=== PATIENT | male | born 1975 | race Caucasian/White ===

== ENCOUNTER 2016-09-13 13:35 | Emergency (ER) | payer OTHER ==
[~2016-09-13] VITALS: Ht 172.7 cm; Wt 162.7 kg
[~2016-09-13 13:35] MED LIST: COLC1TAB25 PO; ERGO1CAP41 PO; GABA-113 PO; LISI-725 PO; PANT40TA PO
[2016-09-13 13:40] VITALS: BP 163/74; PULSE 61; TEMP 36.5; O2SAT 95; Ht 172.7 cm; Wt 162.7 kg
--- NOTE | 2016-09-13 16:43 | EMERGENCY ROOM VISIT NOTE ---
ED Visit Note First contact with patient: 13:56 Chief complaint: Retained sutures left long finger. HPI: This 41-year-old white male presents to the ER for removal of retained sutures in the left long finger. The patient denies any fevers, chills, sweats, nausea, redness, streaking, purulent drainage, pain with palpation, or other signs of infection. They have been keeping the wound clean and protected as directed. Pain is rated as 0/10. Sutures have been in place for 10 days. No other complaints. Medical history, past surgical history, family history, social history, current medications, allergies, and tetanus status: All are unchanged from previous exam. Please see the chart from the initial wound repair visit. Physical exam Vitals: Afebrile General: Well-developed, well-nourished, middle-aged white male, in no acute distress. He looks his stated age. Sitting on the bed, alert and oriented. No visible discomfort. Skin: Warm and dry with good turgor. No rashes or lesions. Sutures are in place. Wound edges are well approximated. No erythema, edema, ecchymosis, purulent drainage, or warmth. No significant discomfort with palpation. Area is nonfluctuant. Musculoskeletal: Patient has intact motor function to the MCP , PIP, and DIP joints. Neurologic: Gross sensation is intact around the wound via soft touch. Capillary refill is intact and is equal to the surrounding tissue. Impression: Healing laceration left long finger Plan: Wound was cleansed with peroxide. Sutures were removed without event. Wound remained closed. No Steri-Strips were needed. Wound care precautions were reviewed. Watch for any signs of infection, or dehiscense. Return to the ER as needed. Tylenol as needed for any discomfort. Current/Historical Medications Scheduled Colchicine (Colchicine), 0.6 MG PO DAILY Ergocalciferol (Vitamin D 48954 Unit), 1 TAB PO MONTHLY Gabapentin (Neurontin), Unknown Dose PO DAILY Lisinopril (Zestril), 20 MG PO DAILY Pantoprazole (Protonix), 40 MG PO DAILY Allergies Coded Allergies: No Known Allergies (Unverified , 09/13/16) Vital Signs Date Time Temp Pulse Resp B/P Pulse Ox O2 Delivery O2 Flow Rate FiO2 09/13/16 13:40 36.5 61 18 163/74 95 Room Air Departure Information Dispostion Home / Self-Care Condition GOOD Referrals Karlee Tan, C.R.N.P. (PCP) Forms HOME CARE DOCUMENTATION FORM, IMPORTANT VISIT INFORMATION Patient Instructions A Signature Page, [facility]
[2017-02-11] MEDS ORDERED: LSN5 PO (16:55)
[2017-02-11] MEDS ORDERED: CMD5 PO (16:55)
[2017-02-11] MEDS ORDERED: LVNIS60 SQ (16:55)
[2017-02-11] MEDS ORDERED: LVNIS120 SQ (16:55)
[2017-02-11] MEDS ORDERED: CRG3125 PO (16:55)
[2017-02-22] MEDS ORDERED: CMD5 PO ×2 (10:29)
[2017-02-22] MEDS ORDERED: BUPRTAB51 PO (10:29)
[2017-03-08] MEDS ORDERED: ESCI1TAB6 PO (07:43)
== END 2016-09-13 14:00 | disposition home or self-care (01) ==
LOC: C.EDB 13:36 → C.EDD 14:00
DX: Z48.02 Encounter for removal of sutures (principal); S61.213D Laceration without foreign body of left middle finger without damage to nail, subsequent encounter; X58.XXXD Exposure to other specified factors, subsequent encounter

== ENCOUNTER → 2016-09-22 | Outpatient (CLI) | payer OTHER ==
[~2016-09-22] MED LIST changes: +BUPRTAB51 PO; +CMD5 PO; +CRG3125 PO; +ESCI1TAB6 PO; +LSN5 PO; +LVNIS120 SQ; +LVNIS60 SQ; +OPTIRAY 320 IV PRN
--- NOTE | 2016-09-22 18:22 | DIAGNOSTIC IMAGING REPORT ---
CT SCAN OF THE ABDOMEN AND PELVIS WITH IV CONTRAST CLINICAL HISTORY: Left lower quadrant abdominal pain. COMPARISON STUDY: No priors. TECHNIQUE: Following the IV administration of 116 cc of Optiray 320, CT scan of the abdomen and pelvis is performed from the lung bases to the proximal femora. Images are reviewed in the axial, sagittal, and coronal planes. IV contrast was administered without complication. Automated dose control exposure was utilized. The Examination is significantly degraded by large body habitus, and by streak artifact from the body wall abutting the CT gantry. CT DOSE: 2497.16 mGy.cm FINDINGS: Lung bases: The heart is mildly enlarged and without pericardial effusion. The lung bases are clear. Liver: The contrast-enhanced liver is enlarged, measuring 23.5 cm in length. The liver demonstrates diffusely diminished attenuation consistent with severe hepatic steatosis. There is no intrahepatic biliary ductal dilatation. The hepatic veins and portal veins are patent. Gallbladder: Unremarkable. Spleen: The spleen is mildly enlarged measuring 13.5 cm in length. Pancreas: Unremarkable. Adrenal glands: Unremarkable. Kidneys: The contrast enhanced kidneys are normal in size and without hydronephrosis. The kidneys enhance symmetrically. A subcentimeter cortical hypodensity in the lower pole of the left kidney likely represents a cyst but is too small for definitive characterization. Abdominal vasculature: The abdominal aorta is normal in course and caliber. Bowel: The small bowel and colon are normal in course and caliber. The appendix is well-visualized and normal. Peritoneum: There is no intraperitoneal free air or abdominal ascites. There is a moderate fat-containing umbilical hernia. Lymphadenopathy: None. Pelvic viscera: The bladder, prostate, and seminal vesicles are normal as visualized. There are small bilateral fat-containing inguinal hernias. Skeletal structures: No lytic or blastic lesions are seen. IMPRESSION: 1. There are no acute infectious or inflammatory findings in the abdomen or pelvis. 2. Hepatomegaly and hepatic steatosis. 3. Mild splenomegaly. 4. Additional findings as above. Electronically signed by: Pasquale Estevez M.D. 09/22/2016 6:20 PM Dictated Date/Time: 09/22/2016 6:15 PM
== END | disposition home or self-care (01) ==
LOC: C.CTS 15:16
PROVIDERS: ATTEND Nurse Practitioner
DX: R10.32 Left lower quadrant pain (principal); R19.8 Other specified symptoms and signs involving the digestive system and abdomen; K76.0 Fatty (change of) liver, not elsewhere classified

== ENCOUNTER → 2016-09-22 | Outpatient (CLI) | payer OTHER ==
[~2016-09-22] MED LIST changes: -OPTIRAY 320 IV PRN
[2016-09-22 17:53] LABS: BASO % 0.5 %; BASO ABS # 0.06 K/uL (0-0.2); COMPLETE YES; EOS % 2.2 %; HEMATOCRIT 42.5 % (42-52); IG% 0.3 %; LYMPH % 26.6 %; LYMPH ABS # 3.08 K/uL (1.2-3.4); MEAN CELL VOLUME 89.5 fL (80-100); MEAN CORPUSCULAR HEMOGLOBIN 30.5 pg (25-34); MEAN CORPUSCULAR HGB CONC 34.1 g/dl (32-36); MONO % 5.9 %; NEUT % 64.5 %; PLATELET COUNT 301 K/uL (130-400); RED BLOOD COUNT 4.75 M/uL (4.7-6.1); WHITE BLOOD COUNT 11.57 K/uL (4.8-10.8)
[2016-09-22 18:15] LABS: ALT/SGPT 24 U/L (12-78); AST/SGOT 11 U/L (15-37); BLOOD UREA NITROGEN 12 mg/dl (7-18); BUN/CREATININE RATIO 13.7 (10-20); CALCIUM 9.3 mg/dl (8.5-10.1); CARBON DIOXIDE 30 mmol/L (21-32); CHLORIDE 104 mmol/L (98-107); CREATININE 0.86 mg/dl (0.60-1.40); GLUCOSE 85 mg/dl (70-99); POTASSIUM 4.4 mmol/L (3.5-5.1); SODIUM 140 mmol/L (136-145)
[2016-09-22 18:18] LABS: ALB/GLOB RATIO 0.8 (0.9-2); ALKALINE PHOSPHATASE 76 U/L (45-117)
== END | disposition home or self-care (01) ==
LOC: C.LABBFT 16:37
PROVIDERS: ATTEND Nurse Practitioner
DX: R10.32 Left lower quadrant pain (principal)

== ENCOUNTER 2017-02-22 18:34 | Emergency (ER) | payer OTHER ==
[~2017-02-22] VITALS: Ht 172.7 cm; Wt 177.2 kg
[~2017-02-22 18:34] MED LIST changes: -ERGO1CAP41 PO; +ERGO500011 PO; -ESCI1TAB6 PO; -GABA-113 PO; -LISI-725 PO
[2017-02-22 18:37] VITALS: TEMP 36.9; Ht 172.7 cm; Wt 177.2 kg
[2017-02-22] MEDS ORDERED: SODIUM CHLORIDE 0.9% 1000ML 1,000 ML IV STA (19:12)
[2017-02-22] MEDS ORDERED: SODIUM CHLORIDE 0.9% 1000ML 1,000 ML IV ONE (19:12)
--- NOTE | 2017-02-22 19:36 | EMERGENCY ROOM VISIT NOTE ---
History Report prepared by Aniket: John Gonzalez Under the Supervision of: Dr. Rex Abad M.D. First contact with patient: 19:01 Chief Complaint: MENTAL HEALTH EVALUATION Stated Complaint: FEELING DIZZY History of Present Illness The patient is a 42 year old male who presents to the Emergency Room with complaints of constant dizziness beginning this morning. The patient states that he has been lightheaded, having vertigo, and a headache. He reports that rest helps his symptoms, but movement worsens it. The patient denies trauma, falling, nausea, vomiting, melena, blood in stool, suicidal ideations, and homicidal ideations. He notes that he though of hurting himself before, but not today. The patient reports that he started Wellbutrin three days ago, and believes that this is the cause. He states that he is also taking Coumadin, and he had low blood pressure this morning at the INR clinic. The patient states that he does not think he needs mental health evaluation today, and his fiance agrees. He notes that he was here two weeks ago for blood clots in his lungs. Source of History: patient, spouse/significant other Onset: this morning Position: head Quality: other (dizziness) Timing: constant Associated Symptoms: + headache, No nausea, No vomiting, No melena, No hematochezia Note: Associated symptoms: vertigo and lightheadedness Denies trauma, falling, suicidal ideations, and homicidal ideations. Review of Systems See HPI for pertinent positives & negatives. A total of 10 systems reviewed and were otherwise negative. Past Medical & Surgical Medical Problems: (1) Pulmonary emboli Old medical records were reviewed. Nurse's notes were reviewed and I agree with. Family History Patient reports no known family medical history. Social History Smoking Status: Never Smoker Drug Use: none Marital Status: Housing Status: lives with family Occupation Status: employed Current/Historical Medications Scheduled Bupropion (Wellbutrin-Xl), 150 MG PO DAILY Carvedilol (Carvedilol), 3.125 MG PO BID Colchicine (Colchicine), 0.6 MG PO DAILY Ergocalciferol (Vitamin D 71775 Unit), 1 TAB PO MONTHLY Lisinopril (Lisinopril), 5 MG PO QAM Pantoprazole (Protonix), 40 MG PO DAILY Warfarin Sod (Coumadin), 15 MG PO WK Warfarin Sod (Coumadin), 12.5 MG PO 6XWK Allergies Coded Allergies: No Known Allergies (Unverified , 02/22/17) Physical Exam Vital Signs Date Time Temp Pulse Resp B/P (MAP) Pulse Ox O2 Delivery O2 Flow Rate FiO2 02/22/17 23:58 50 18 119/52 96 02/22/17 23:00 50 18 96 Room Air 02/22/17 21:22 53 18 109/51 95 Room Air 02/22/17 20:05 50 16 119/55 95 Room Air 02/22/17 18:37 36.9 50 20 125/72 96 Room Air Physical Exam General: Obese, middle-aged male, non-ill appearing, no acute distress, breathing comfortably on room air. Normal speech HEENT: Normal cephalic atraumatic. Pupils are equal round and reactive to light. Sclerae are anicteric. Extraocular movements are intact. Oropharynx is pink with moist mucous membranes. No swelling of the mouth lips or tongue. No eye stag. Neck: Supple with a midline trachea. No meningeal signs or stiffness, no JVD or bruits. No Stridor. Chest: Clear to auscultation bilaterally. No wheezes or rhonchi. No increased work of breathing. Heart: regular rate and rhythm. Abdomen: Soft nontender, nondistended without rebound guarding or rigidity. Extremities: No cyanosis clubbing or edema. No calf tenderness or assymetry Spine/Back. Non tender to palpation. No CVA tenderness Skin: Good turgor without rashes. Neurologic exam: Cranial nerves two through 12 are intact. Motor and sensation are intact and symmetrical throughout. GCS of 15. No tremor. Finger to nose intact. Psychological: Normal affect, denies suicidal and homicidal ideations. Medical Decision & Procedures ER Provider Diagnostic Interpretation: Radiology results as stated below per my review and radiologist interpretation: CHEST ONE VIEW PORTABLE CLINICAL HISTORY: Atypical chest pain. Dizziness. COMPARISON STUDY: 02/09/2017 FINDINGS: The cardiac and mediastinal contours are normal. There is no evidence of focal pulmonary consolidation. There is no evidence of failure. No pleural effusions are visualized.[ The examination is slightly limited due to the patient's large body habitus. IMPRESSION: No active disease in the chest. Electronically signed by: Paul Hall M.D. 02/22/2017 7:59 PM Dictated Date/Time: 02/22/2017 7:[address] HEAD WITHOUT CONTRAST (CT) CLINICAL HISTORY: Dizziness. Patient on Coumadin. COMPARISON STUDY: No previous studies for comparison. TECHNIQUE: Axial CT of the brain is performed from the vertex to the skull base. IV contrast was not administered for this examination. CT DOSE: 795.67 mGy.cm FINDINGS: No intra or extra-axial mass lesions are visualized. There is no CT evidence of acute cortical infarction. There is no evidence of midline shift. There is no acute hemorrhage. No calvarial fractures are visualized. There is no evidence of pathologic ventricular dilatation. There is polypoid right maxillary sinus mucosal thickening. IMPRESSION: No acute intracranial findings Electronically signed by: Paul Hall M.D. 02/22/2017 8:53 PM Dictated Date/Time: 02/22/2017 8:52 PM Laboratory Results 02/22/17 19:53 Red Blood Count 4.89, Mean Corpuscular Volume 87.1, Mean Corpuscular Hemoglobin 28.8, Mean Corpuscular Hemoglobin Concent 33.1, Mean Platelet Volume 9.9, Neutrophils (%) (Auto) 59.2, Lymphocytes (%) (Auto) 31.5, Monocytes (%) (Auto) 5.8, Eosinophils (%) (Auto) 2.7, Basophils (%) (Auto) 0.4, Neutrophils # (Auto) 6.40, Lymphocytes # (Auto) 3.41, Monocytes # (Auto) 0.63, Eosinophils # (Auto) 0.29, Basophils # (Auto) 0.04 02/22/17 19:53 Test 02/22/17 19:25 02/22/17 19:53 02/22/17 20:03 Urine Opiates Screen NEG (NEG) Urine Methadone, Qualitative NEG (NEG) Urine Barbiturates NEG (NEG) Urine Phencyclidine (PCP) Level NEG (NEG) Ur Amphetamine/Methamphetamine NEG (NEG) MDMA (Ecstasy) Screen POS (NEG) Urine Benzodiazepines Screen NEG (NEG) Urine Cocaine Metabolite NEG (NEG) Urine Marijuana (THC) NEG (NEG) White Blood Count 10.81 K/uL (4.8-10.8) Red Blood Count 4.89 M/uL (4.7-6.1) Hemoglobin 14.1 g/dL (14.0-18.0) Hematocrit 42.6 % (42-52) Mean Corpuscular Volume 87.1 fL (80-100) Mean Corpuscular Hemoglobin 28.8 pg (25-34) Mean Corpuscular Hemoglobin Concent 33.1 g/dl (32-36) Platelet Count 299 K/uL (130-400) Mean Platelet Volume 9.9 fL (7.4-10.4) Neutrophils (%) (Auto) 59.2 % Lymphocytes (%) (Auto) 31.5 % Monocytes (%) (Auto) 5.8 % Eosinophils (%) (Auto) 2.7 % Basophils (%) (Auto) 0.4 % Neutrophils # (Auto) 6.40 K/uL (1.4-6.5) Lymphocytes # (Auto) 3.41 K/uL (1.2-3.4) Monocytes # (Auto) 0.63 K/uL (0.11-0.59) Eosinophils # (Auto) 0.29 K/uL (0-0.5) Basophils # (Auto) 0.04 K/uL (0-0.2) RDW Standard Deviation 45.4 fL (36.4-46.3) RDW Coefficient of Variation 14.3 % (11.5-14.5) Immature Granulocyte % (Auto) 0.4 % Immature Granulocyte # (Auto) 0.04 K/uL (0.00-0.02) Prothrombin Time 22.3 SECONDS (9.0-12.0) Prothromb Time International Ratio 2.0 (0.9-1.1) Activated Partial Thromboplast Time 39.7 SECONDS (21.0-31.0) Partial Thromboplastin Ratio 1.5 Anion Gap 7.0 mmol/L (3-11) Est Creatinine Clear Calc Drug Dose 188.1 ml/min Estimated GFR () 127.1 Estimated GFR (Non- 109.6 BUN/Creatinine Ratio 14.5 (10-20) Calcium Level 8.7 mg/dl (8.5-10.1) Total Bilirubin 0.3 mg/dl (0.2-1) Direct Bilirubin < 0.1 mg/dl (0-0.2) Aspartate Amino Transf (AST/SGOT) 10 U/L (15-37) Alanine Aminotransferase (ALT/SGPT) 38 U/L (12-78) Alkaline Phosphatase 66 U/L (45-117) Troponin I < 0.015 ng/ml (0-0.045) Total Protein 7.8 gm/dl (6.4-8.2) Albumin 3.5 gm/dl (3.4-5.0) Lipase 113 U/L (73-393) Ethyl Alcohol mg/dL < 3.0 mg/dl (0-3) Laboratory studies as stated above per my review. Medications Administered Medications (Trade) Dose Ordered Sig/Julia Route Start Time Stop Time Status Last Admin Dose Admin Sodium Chloride 1,000 ml @ 999 mls/hr Q1H1M STAT IV 02/22/17 19:12 02/22/17 20:12 DC 02/22/17 20:05 999 MLS/HR Sodium Chloride 1,000 ml @ 150 mls/hr Q6H40M ONCE IV 02/22/17 19:12 02/23/17 01:19 DC 02/22/17 19:12 150 MLS/HR ECG Indication: other (dizziness) Rate (beats per minute): 54 Rhythm: sinus bradycardia Findings: no acute ischemic change, other (premature supraventricular complex) Comparison ECG Date: 02/10/17 Change: no significant change ED Course 1908: Past medical records reviewed. The patient was evaluated in room A05, and a complete history and physical examination were performed. 1911: Ordered Sodium Chloride 1000 ml @ 150 mls/hr IV, Sodium Chloride 1000 ml @ 999 mls/hr IV 2048: I reevaluated the patient, and he is on his way back from [place]. 2231: I reevaluated the patient, and he is resting comfortably. 2325: Upon reevaluation, the patient is resting comfortably. I discussed the results and treatment plan with him. He verbalized agreement of the treatment plan. The patient was discharged home. Medical Decision Differential diagnosis includes: vertigo, medication side effect, anemia, intracranial injury, infection, electrolyte metabolic abnormality. Medication Reconciliation: I attest that I have personally reviewed the patient' s current medication list. Blood pressure Screening: Patient was found to have normal blood pressure on screening and does not require follow-up. This patient comes in as described above. He was placed in room A5. He is feeling dizzy today. He was on Wellbutrin on Wednesday concerning the be related to that. He has a normal neurologic exam. He is started on Coumadin and recently was found to be therapeutic on his INR he has not fallen. He has a normal neurologic exam and has no ataxia or any cerebellar signs. He is not anemic. EKG does not suggest acute coronary syndrome or significant arrhythmia. He has no acute electrolyte or metabolic abnormalities. CAT scan of his head is unremarkable . chest x-ray is unremarkable. His troponin is not elevated. He is feeling good and would like to go home. He does not feel that he needs an acute psychiatric consult and feels that he can go home. The agrees. He will be discharged home. I told him hold Wellbutrin for now and follow-up with his doctor tomorrow for further instructions. There were happy with the plan he was discharged to home. Impression Primary Impression: Dizziness Additional Impression: Medication side effect Scribe Attestation The scribe's documentation has been prepared under my direction and personally reviewed by me in its entirety. I confirm that the note above accurately reflects all work, treatment, procedures, and medical decision making performed by me. Departure Information Dispostion Home / Self-Care Referrals Karlee Tan, C.R.N.P. (PCP) Forms HOME CARE DOCUMENTATION FORM, IMPORTANT VISIT INFORMATION Patient Instructions My [facility] Additional Instructions Rest. Be very careful getting up and down. Drink plenty of fluids. Return if: Worsening of symptoms, chest pain, shortness of breath, fever or chills, any new problems or concerns. Hold the Wellbutrin for now and discuss this with your doctor tomorrow. The dizziness is likely from the Wellbutrin. Problem Qualifiers
--- NOTE | 2017-02-22 20:00 | DIAGNOSTIC IMAGING REPORT ---
CHEST ONE VIEW PORTABLE CLINICAL HISTORY: Atypical chest pain. Dizziness. COMPARISON STUDY: 02/09/2017 FINDINGS: The cardiac and mediastinal contours are normal. There is no evidence of focal pulmonary consolidation. There is no evidence of failure. No pleural effusions are visualized.[ The examination is slightly limited due to the patient's large body habitus. IMPRESSION: No active disease in the chest. Electronically signed by: Palu Hall M.D. 02/22/2017 7:59 PM Dictated Date/Time: 02/22/2017 7:58 PM
[2017-02-22 20:10] LABS: BENZODIAZEPINE, URINE NEG (NEG); COCAINE,URINE NEG (NEG); PHENCYCLIDINE, URINE NEG (NEG)
[2017-02-22 20:11] LABS: BASO % 0.4 %; BASO ABS # 0.04 K/uL (0-0.2); COMPLETE YES; EOS % 2.7 %; HEMATOCRIT 42.6 % (42-52); IG% 0.4 %; LYMPH % 31.5 %; LYMPH ABS # 3.41 K/uL (1.2-3.4); MEAN CELL VOLUME 87.1 fL (80-100); MEAN CORPUSCULAR HEMOGLOBIN 28.8 pg (25-34); MEAN CORPUSCULAR HGB CONC 33.1 g/dl (32-36); MEAN PLATELET VOLUME 9.9 fL (7.4-10.4); MONO % 5.8 %; NEUT % 59.2 %; PLATELET COUNT 299 K/uL (130-400); RED BLOOD COUNT 4.89 M/uL (4.7-6.1); WHITE BLOOD COUNT 10.81 K/uL (4.8-10.8)
[2017-02-22 20:21] LABS: PARTIAL THROMBOPLASTIN RATIO 1.5; PROTHROMBIN TIME (PATIENT) 22.3 SECONDS (9.0-12.0)
[2017-02-22 20:31] LABS: ALT/SGPT 38 U/L (12-78); AST/SGOT 10 U/L (15-37); BLOOD UREA NITROGEN 12 mg/dl (7-18); BUN/CREATININE RATIO 14.5 (10-20); CALCIUM 8.7 mg/dl (8.5-10.1); CARBON DIOXIDE 27 mmol/L (21-32); CHLORIDE 106 mmol/L (98-107); CREATININE 0.81 mg/dl (0.60-1.40); GLUCOSE 90 mg/dl (70-99); POTASSIUM 4.1 mmol/L (3.5-5.1); SODIUM 140 mmol/L (136-145)
[2017-02-22 20:34] LABS: ALKALINE PHOSPHATASE 66 U/L (45-117)
--- NOTE | 2017-02-22 20:55 | DIAGNOSTIC IMAGING REPORT ---
CT HEAD WITHOUT CONTRAST (CT) CLINICAL HISTORY: Dizziness. Patient on Coumadin. COMPARISON STUDY: No previous studies for comparison. TECHNIQUE: Axial CT of the brain is performed from the vertex to the skull base. IV contrast was not administered for this examination. CT DOSE: 795.67 mGy.cm FINDINGS: No intra or extra-axial mass lesions are visualized. There is no CT evidence of acute cortical infarction. There is no evidence of midline shift. There is no acute hemorrhage. No calvarial fractures are visualized. There is no evidence of pathologic ventricular dilatation. There is polypoid right maxillary sinus mucosal thickening. IMPRESSION: No acute intracranial findings Electronically signed by: Paul Hall M.D. 02/22/2017 8:53 PM Dictated Date/Time: 02/22/2017 8:52 PM
[2017-02-22 23:58] VITALS: BP 119/52; PULSE 50; O2SAT 96
[2017-03-08] MEDS ORDERED: ESCI1TAB6 PO (07:43)
== END 2017-02-22 23:58 | disposition home or self-care (01) ==
LOC: C.EDB 18:35 → C.EDA 23:58
DX: R42 Dizziness and giddiness (principal); T43.295A Adverse effect of other antidepressants, initial encounter; Z79.01 Long term (current) use of anticoagulants; Z86.711 Personal history of pulmonary embolism; Z79.899 Other long term (current) drug therapy

== ENCOUNTER → 2017-07-17 | Outpatient (CLI) | payer BC ==
[~2017-07-17] MED LIST changes: -BUPRTAB51 PO; +ESCI1TAB6 PO; -LVNIS120 SQ; -LVNIS60 SQ; -PANT40TA PO
[2017-07-17 14:31] LABS: BASO % 0.5 %; BASO ABS # 0.05 K/uL (0-0.2); COMPLETE YES; EOS % 2.4 %; HEMATOCRIT 43.3 % (42-52); IG% 0.4 %; LYMPH % 30.2 %; LYMPH ABS # 2.93 K/uL (1.2-3.4); MEAN CELL VOLUME 89.6 fL (80-100); MEAN CORPUSCULAR HEMOGLOBIN 29.6 pg (25-34); MEAN PLATELET VOLUME 10.4 fL (7.4-10.4); NEUT % 60.5 %; PLATELET COUNT 263 K/uL (130-400); RED BLOOD COUNT 4.83 M/uL (4.7-6.1)
== END | disposition home or self-care (01) ==
LOC: C.LAB 13:45
PROVIDERS: ATTEND Nurse Practitioner
DX: I10 Essential (primary) hypertension (principal)

== ENCOUNTER → 2017-09-09 | Outpatient (CLI) | payer BC ==
[~2017-09-09] VITALS: Ht 172.7 cm; Wt 181.4 kg
[~2017-09-09] MED LIST changes: +ASPI81TA28 PO; +CARV3.122 PO; +CEPH500C PO; +ERGO500037 PO; +ESCI10TA17 PO; +HYDR-5688 PO; +KETO10TA PO; +LEVO50TA6 PO; +LISI-729 PO; +LISI-730 PO; -LSN5 PO; +ONDA4TAB46 PO; +OXYC-57 PO; +PRAM0.259 PO; +RANI150T85 PO; +SULF800T23 PO; +TOPI25CA2 PO; +VALA1TAB31 PO
[2017-09-09 15:31] VITALS: BP 132/65; PULSE 56; Ht 172.7 cm; Wt 181.4 kg
== END | disposition home or self-care (01) ==
LOC: C.NEUR 14:39
PROVIDERS: ATTEND Internal Medicine Pulmonary Disease
DX: G47.33 Obstructive sleep apnea (adult) (pediatric) (principal); E66.01 Morbid (severe) obesity due to excess calories

== ENCOUNTER → 2017-10-06 | Outpatient (CLI) | payer BC ==
[~2017-10-06] MED LIST changes: -ASPI81TA28 PO; -CARV3.122 PO; -CEPH500C PO; -ERGO500037 PO; -ESCI10TA17 PO; -HYDR-5688 PO; -KETO10TA PO; -LEVO50TA6 PO; -LISI-729 PO; -LISI-730 PO; +LSN5 PO; -ONDA4TAB46 PO; -OXYC-57 PO; -PRAM0.259 PO; -RANI150T85 PO; -SULF800T23 PO; -TOPI25CA2 PO; -VALA1TAB31 PO
--- NOTE | 2017-10-07 06:37 | PAP/PSG TECHNICIAN REPORT ---
[facility] Bagman/Woman Polysomnogram Report Study name: None Report date: 10/07/2017 Study date: 10/06/2017 Referring Physician: Dr. Campos Gonzalez DO Name: MELODY RICHARDSON Interpreting Physician: Campos Gonzalez D.O. Date of : 1975 Bagman/Woman: SALOMÓN Salazar. Sex: Male Age: 42 StudyType: PSG PAP Weight: 400 lbs Height: 42 years, Height 5' 8" Neck Circum: 21.5 inches BMI: 60.81 Medications: Escitalopram 5 mg, Colchicine 0.6 mg, Topiramate 25 mg, Lisinopril 5 mg, Carvedilol 3.125 mg, Hydrocodone-Acetaminophen 5-325 mg, Promethazine 25 mg Patient History 42 yr. old male here for an updated titration sleep study. Patient is currently on 16 CWP and is feeling tired. He is also waking up a lot during the night. ESS 01/27. He feels as though his machine is not giving him enough air, and is in the need of a new mask. Parameters Monitored NPSG: E1-M2, E2-M1, Fp1-M2, Fp2-M1, F3-M2, F4-M2, F4-M1, C3-M2, C4-M2, C4-M1, O1-M2, O2-M2, O2-M1, T3-M2, T4-M1, P3-M2, P4-M1, CHIN1, CHIN2, HR, EKG, Legs, PFLOW, SNOR, FLOW, CFLOW, Tidal Volume, THOR, ABDO, SpO2, PLTH, CPRESS, ETCO2 Wave, ETCO2, pH Sleep Architecture Sleep Stages Time at Lights Off 9:56:18 PM STAGES Time (min.) TST (%) Time at Lights On 5:42:18 AM Wake 62.0 -- Total Recording Time (TRT) 466.50 min. N1 47.0 12 Total Sleep Period (TSP) 455.0 min. N2 250.5 62 Total Sleep Time (TST) 404.0min. N3 41.0 10 Awake Time 62.0 min. REM 65.5 16 Wake after Sleep Onset 51.0 min. Sleep Efficiency (SE) 87 % Sleep Onset Latency (PAULO) 11.0 min. Number of Stage 1 Shifts None Awakenings 20 Stage Changes 112 Number of REM periods 10 REM 65.5 16 REM Latency 226.0 min. NREM 338.5 84 Body Position Analysis Supine Right Left Side Prone Vertical Total Sleep Time (min.) 255.4 148.0 43.5 191.49 0.0 0.0 Total Sleep Time (%) 53% 37% 11% 47 0% N/A% Total Sleep Time REM (min.) 35.0 30.5 0.0 None 0.0 0.0 Total Sleep Time NREM (min.) 177.5 117.5 43.5 None 0.0 0.0 Intermittent Wake (min.) 42.9 5.6 13.5 None 0.0 0.0 Total Sleep Period (%) 54% None None None None None Arousals Myoclonus (PLM) * Events Count Index Events Count Index Spontaneous 12 2 Events Awake (PLMW) 52 50.3 Respiratory 2 0.4 Events Asleep w/ Arousal (PLMA) 106 15.7 PLM 106 16 Events Asleep w/o Arousal (PLMS) 262 38.9 Snoring 20 3 Total Asleep 368 54.7 Total 140 21 Total 420 54 Respiratory Analysis * CA OA MA CH H RERA Total Count 0 0 0 0 10 0 10 Index 0.0 0.0 0.0 0 1.5 0 1.5 Mean Duration 0.0 0.0 0.0 0.00 28.7 0.0 28.7 Longest Duration 0.0 0.0 0.0 0.00 0.0 0.0 78.5 Respiratory Event Summary Total Supine ~Supine Right Left Prone REM NREM Apneas Count 0 0 0 0 0 N/A 0 0 Index 0.0 0 0 0.0 0.0 N/A 0 0 Hypopneas (4% Desat) Count 10 9 1 1 0 N/A 5 5 Index 1.5 2.5 0 0.4 0.0 N/A 4.6 0.9 Apneas & All Hypopneas Count 10 9 1 1 0 N/A 5 5 Index 1.5 3 0 0 0 N/A 4.6 0.9 Respiratory Events (Product Lead+All Hyp+RERA) Count 10 9 1 1 0 N/A 5 5 Index 1.5 3 0 0.4 0.0 N/A 4.6 0.9 Respiratory Related Arousal Count 2 9 0 0 0 N/A 1 2 Index 0.4 1 0 0 0 N/A 1 0 Snoring Analysis Supine Right Left Prone REM NREM Total Snore duration 15.5 min Snores count 245 187 345 N/A 26 751 777 Snore mean duration 1.2 Sec Snores index 69 76 476 N/A 23.8 133.1 115.4 TST with snoring (%) 3.8% Desaturation Event Summary: Minimum %SpO2 Event Count Mean/Min/Max Duration(sec.) Desaturation Index % Time In Bed > 90 15 27.5 / 7.3 / 58.5 2.2 91.7 86 - 90 1 25.3 / 25.3 / 25.3 1.6 8.3 81 - 85 0 N/A 0.0 0.0 76 - 80 0 N/A 0.0 0.0 71 - 75 0 N/A 0.0 0.0 66 - 70 0 N/A 0.0 0.0 61 - 65 0 N/A 0.0 0.0 56 - 60 0 N/A 0.0 0.0 51 - 55 0 N/A 0.0 0.0 < 50 0 N/A 0.0 0.0 Total REM NREM Awake <50% 0.0 min. 0.0 min. 0.0 min. 0.0 min. 51 - 60% 0.0 min. 0.0 min. 0.0 min. 0.0 min. 61 - 70% 0.0 min. 0.0 min. 0.0 min. 0.0 min. 71 - 80% 0.0 min. 0.0 min. 0.0 min. 0.0 min. 81 - 90% 37.7 min. 5.4 min. 29.5 min. 2.7 min. 91 - 100% 413.6 min. 60.1 min. 309.0 min. 44.6 min. Average 92 92 92 92 Minimum SpO2 87 87 89 87 Desaturation Event Index 1.9 6.4 1.1 2.9 # Desat. Events below 89% 4 4 N/A 0 Time(%) with Saturation below 89% 0.3 0.2 0.0 0.2 Time(min.) with Saturation below 89% 1.5 0.7 0.0 0.8 Time (mins) REM (mins) NREM (mins) % of TST SpO2 Below 90% 11 6 N5 1.0 SpO2 Below 88% 2 0 0 0 Heart Rate Analysis Min (bpm) Max (bpm) Average (bpm) Awake 44 88 65 NREM 41 85 54 REM 42 75 51 Overall 41 85 54 Supplemental O2 Values Minimum O2 level: None Value Start Time End Time Bagman/Woman Comments slept in the right, left, and supine positions. Cardiac abnormalities noted. Frequent PLMs noted. No bruxism noted. CPAP was initiated at +10 CMH2O ( could not tolerate a lower pressure) and up-titrated to a level of +14 CMH2O no Cflex.. A medium Resmed Mirage Quattro, was used during titration. awoke to use the restroom three times during the night. Mr. Richardson stated, that was a normal night, I still feel tired". The final report will be interpreted and signed by a sleep physician. The completed physician report will then be placed in the patient medical record. Therapy Event: Therapy (cm H20) 10 11 12 13 14 Total Time at Pressure (min.) 46.0 87.7 113.3 26.1 193.0 TST at Pressure (min.) 31.0 70.7 100.3 26.1 176.0 # Periods 1 1 1 1 1 Sleep Onset (min.) 11.0 0.0 0.0 0.0 0.0 REM Onset (min.) N/A N/A 103.3 0.0 0.0 Sleep Efficiency % 67 80 88 100 91 Wakefulness (%) 32.6 19.4 11.5 0.0 8.8 Wakefulness (min.) 15.0 17.0 13.0 0.0 17.0 NREM 1 (%) 9.8 9.7 8.8 9.6 11.1 NREM 1 (min.) 4.5 8.5 10.0 2.5 21.5 NREM 2 (%) 57.6 58.4 58.1 0.0 55.4 NREM 2 (min.) 26.5 51.2 65.8 0.0 107.0 NREM 3 (%) 0.0 12.5 15.9 0.0 6.2 NREM 3 (min.) 0.0 11.0 18.0 0.0 12.0 REM (%) 0.0 0.0 5.7 90.4 18.4 REM (min.) 0.0 0.0 6.5 23.6 35.5 # Arousals 34 35 39 6 26 Arousal Index 65.9 29.7 23.3 13.8 8.9 # Snore 105 477 143 16 36 Snore Index 203.4 404.8 85.6 36.8 12.3 AHI 1.9 0.0 2.4 6.9 0.7 AHI Supine 2.9 0.0 2.6 6.9 0.9 AHI Non-Supine 0.0 0.0 0.0 N/A 0.5 NREM AHI 1.9 0.0 0.6 24.0 0.9 REM AHI N/A N/A 27.8 5.1 0.0 RDI 1.9 0.0 2.4 6.9 0.7 # Obstructive 0 0 0 0 0 # Central Ap 0 0 0 0 0 # Mixed 0 0 0 0 0 # Hypopneas 1 0 4 3 2 RERAS 0 0 0 0 0 Total Respiratory Events 1 0 4 3 2 Time Below SpO2 89.00% (min.) 0.0 0.0 0.5 0.2 0.0 Mean NREM SpO2 (%) 92 91 91 93 93 Mean REM SpO2 (%) N/A N/A 91 92 92 Mean Sleep SpO2 (%) 92 91 91 92 93 Min NREM SpO2 (%) 89 89 89 91 89 Min REM SpO2 (%) N/A N/A 87 88 89 Position Supine (min.) 21.0 8.2 91.8 26.1 65.5 Position Non-supine (min.) 10.0 62.5 8.5 0.0 110.5 LM Index Sleep 137.5 82.3 70.6 39.1 22.2 LM Index NREM 137.5 82.3 73.5 24.0 20.5 LM Index REM N/A N/A 27.8 40.7 28.8 Mean Heart Rate (bpm) 63 61 57 54 47 Min Heart Rate (bpm) 48 45 44 42 41
--- NOTE | 2017-10-12 08:07 | Sleep Study ---
Sleep Study Report Date of Service: 10/06/2017 Sleep Study Report CLINICAL DATA: The patient is a 42-year-old male with a BMI of 60.81. He has a history of severe sleep apnea for 6 years. His CPAP is set at 16. He was diagnosed in [place]. He has gained approximately 50 pound since the original study. He has disturbed nocturnal sleep, decreased energy level, and morning tiredness. He completed the [place] Sleepiness Scale and had a score of 5. This was an in- lab CPAP retitration. SLEEP ARCHITECTURE: The total sleep period was 455 minutes. The total sleep time was 404 minutes. Sleep efficiency was mildly decreased at 87 percent. Sleep latency was 11 minutes. Wake after sleep onset was 51 minutes. The REM latency was prolonged to 226 minutes. Sleep consisted of stage N1 12 percent, stage N2 62 percent, stage N3 10 percent, stage REM 16 percent. AROUSAL DATA: The patient had a total of 140 arousals including 12 spontaneous arousals, 2 respiratory arousals, 106 PLM arousals, and 20 snoring arousals. The arousal index was 21. PLM DATA: The patient had a total of 368 periodic limb movements of sleep for a PLM index of 54.7. There was 106 arousals associated with limb movements for a PLM arousal index of 15.7. EKG: The underlying rhythm was normal sinus. The patient had some degree of sinus arrhythmia and apparent PACs. The heart rates 41-85 beats per minute. The average heart rate was 54 beats per minute. RESPIRATORY DATA: The patient's respiratory events were treated with nasal CPAP. He had a total of 10 respiratory events, all hypopneas. The mean duration of the hypopneas was 28.7. The apnea-hypopnea index was only 1.5. The 4 percent rule was utilized for scoring hypopneas. OXIMETRY DATA: The average saturation for the night was 92 percent. The minimum saturation was 87 percent. There was a total of only 1.5 minutes with saturations less than 89 percent. RADIO FREQUENCY TECHNICIAN COMMENTS: The patient slept on the right, left, and supine positions. Cardiac abnormalities noted. Frequent PLMS noted. No bruxism noted. CPAP was initiated at 10 centimeters because the patient could not tolerate a lower pressure. He was up titrated to a level of 14 centimeters. A medium [employer] Mirage Quattro was used during titration. The patient awaken to use the restroom 3 times during the night. Patient stated that this was a normal night and he still feels tired. IMPRESSIONS: 1. Obstructive sleep apnea-resolved with nasal CPAP at 14 centimeters 2. Periodic limb movement disorder COMMENTS: The patient had a near normal sleep efficiency. His sleep architecture was reasonably good. Frequent periodic limb movements with a modest number of arousals. It is possible these are contributing to his sleep symptoms. He was at the final pressure of 14 centimeters where he had an apnea-hypopnea index of only 0.7. He had a total of 176 minutes of sleep at the final pressure. He did have sleep time supine and in REM. RECOMMENDATIONS: 1. It is advised that the patient CPAP be set at 14 centimeters. 2. The patient reportedly needs a new CPAP and new supplies. A [employer] Quattro full face mask size medium would be advised. 3. Consideration is given to treatment for the underlying limb movement disorder. Medication such as pramipexole could be considered. 4. Weight loss is advised in light of the severe elevation of body mass index 5. If possible the patient should avoid sleeping supine. 6. To clinically be followed with compliance data. Copies To 1: Campos Gonzalez DO; Karlee Tan, C.R.N.P.
== END | disposition home or self-care (01) ==
LOC: C.NEUR 21:00
PROVIDERS: ATTEND Internal Medicine Pulmonary Disease
DX: G47.33 Obstructive sleep apnea (adult) (pediatric) (principal); G47.61 Periodic limb movement disorder

== ENCOUNTER 2017-10-20 09:22 | Emergency (ER) | payer BC ==
[~2017-10-20] VITALS: Ht 172.7 cm; Wt 180.0 kg
[2017-10-20 09:32] VITALS: TEMP 36.5; Ht 172.7 cm; Wt 180.0 kg
[2017-10-20] MEDS ORDERED: CRG3125 PO (09:46)
[2017-10-20] MEDS ORDERED: PRAM0.259 PO (09:52)
[2017-10-20] MEDS ORDERED: TOPI25CA2 PO (09:52)
[2017-10-20 10:20] VITALS: O2SAT 97
[2017-10-20 10:33] LABS: BASO % 0.4 %; BASO ABS # 0.03 K/uL (0-0.2); EOS ABS # 0.24 K/uL (0-0.5); HEMATOCRIT 42.6 % (42-52); HEMOGLOBIN 14.4 g/dL (14.0-18.0); IG# 0.04 K/uL (0.00-0.02); LYMPH % 30.8 %; LYMPH ABS # 2.48 K/uL (1.2-3.4); MEAN CELL VOLUME 88.6 fL (80-100); MEAN CORPUSCULAR HEMOGLOBIN 29.9 pg (25-34); MEAN CORPUSCULAR HGB CONC 33.8 g/dl (32-36); MEAN PLATELET VOLUME 10.2 fL (7.4-10.4); MONO % 5.1 %; MONO ABS # 0.41 K/uL (0.11-0.59); NEUT % 60.2 %; NEUT ABS # 4.84 K/uL (1.4-6.5); PLATELET COUNT 257 K/uL (130-400); RED CELL DISTRIBUTION WIDTH SD 45.5 fL (36.4-46.3); WHITE BLOOD COUNT 8.04 K/uL (4.8-10.8)
[2017-10-20 10:46] LABS: PTT PATIENT 26.9 SECONDS (21.0-31.0)
[2017-10-20 10:50] LABS: ALBUMIN 3.2 gm/dl (3.4-5.0); ALT/SGPT 26 U/L (12-78); BLOOD UREA NITROGEN 9 mg/dl (7-18); CALCIUM 8.9 mg/dl (8.5-10.1); CARBON DIOXIDE 25 mmol/L (21-32); CREATININE 0.76 mg/dl (0.60-1.40); GLUCOSE 124 mg/dl (70-99); LIPASE 110 U/L (73-393); POTASSIUM 3.6 mmol/L (3.5-5.1); SODIUM 138 mmol/L (136-145)
[2017-10-20 10:55] LABS: ALKALINE PHOSPHATASE 72 U/L (45-117); AST/SGOT 10 U/L (15-37); CKMB 0.8 ng/ml (0.5-3.6); TOTAL PROTEIN 7.5 gm/dl (6.4-8.2)
[2017-10-20] MEDS ORDERED: OPTIRAY 320 IV PRN (11:15)
[2017-10-20 11:35] VITALS: BP 140/78
--- NOTE | 2017-10-20 11:56 | DIAGNOSTIC IMAGING REPORT ---
CT ANGIOGRAPHY OF THE CHEST, PULMONARY EMBOLUS PROTOCOL CLINICAL HISTORY: Shortness of breath. Chest pain. History of pulmonary embolus. COMPARISON STUDY: Chest CT February 09, 2017 and chest radiograph February 12, 2017. TECHNIQUE: Following IV administration of 106 mL of Optiray-320, helical axial images of the chest were obtained utilizing the pulmonary embolus protocol. Maximal intensity projections and sagittal and coronal reformats were viewed on an independent 3D workstation. IV contrast was administered without complication. A dose lowering technique was utilized adhering to the principles of ALARA. CT DOSE: 887.89 mGy.cm FINDINGS: No pulmonary emboli are identified although the segmental and subsegmental vessels are suboptimally assessed on this exam due to suboptimal opacification, respiratory motion artifact and quantum mottle artifact. There is no evidence for thoracic aortic dissection. The heart is mildly enlarged. There is no pericardial effusion. No enlarged axillary, mediastinal or hilar lymph nodes are present. There is no pneumothorax or pleural effusion. No consolidation to suggest pneumonia is noted. A splenule is noted. Bony thorax is unremarkable. IMPRESSION: 1. No pulmonary emboli identified although segmental and subsegmental pulmonary arteries suboptimally assessed on this exam due to artifact. 2. Mild cardiomegaly. 3. No acute intrathoracic findings. Electronically signed by: Leroy Velez M.D. 10/20/2017 11:54 AM Dictated Date/Time: 10/20/2017 11:44 AM
[2017-10-20 12:28] VITALS: PULSE 78; O2SAT 98
--- NOTE | 2017-10-20 15:26 | EMERGENCY ROOM VISIT NOTE ---
History First contact with patient: 09:45 Chief Complaint: SHORTNESS OF BREATH Stated Complaint: PAIN IN CHEST AREA AND SOB Nursing Triage Summary: pt here with increased sob and pain across chest x one week. pt state has hx of pulmonary embolisms. pt states has not been on any blood thinners for several months. recent car trip to [place]. History of Present Illness The patient is a 42 year old male who presents to the Emergency Room with complaints of lower central chest pain that radiates into the back, as well as shortness of breath. The patient reports that he had pulmonary emboli last summer, and reports that this feels the same. He has noticed fatigue lately as well. He denies any prior history of cardiac disease, or strong family history of coronary artery disease. The patient rates his discomfort a 6 out of 10. The patient reports that he has had some recent colds. His pain is not worsened with position or deep breathing. Review of Systems HEENT: Denies dizziness, visual problems, hearing loss, tinnitus. Denies difficulty swallowing or oral lesions. PULMONARY: Denies cough, sputum production or hemoptysis. Otherwise see history of present illness. CARDIOVASCULAR: Denies palpitations, dyspnea on exertion, orthopnea or peripheral edema. Otherwise see history of present illness. GASTROINTESTINAL: Denies diarrhea, constipation, nausea, vomiting, or abdominal pain. GENITOURINARY: Denies dysuria, frequency, urgency or nocturia. NEUROLOGIC: Denies history of epilepsy, CVA, TIA or chronic headaches. MUSCULOSKELETAL: Denies history of joint tenderness/swelling. SKIN: Denies rashes or lesions. PSYCHIATRIC: Denies history of depression or mental illness. ENDOCRINE: Denies history of diabetes or thyroid disorders. Past Medical/Surgical History Medical Problems: (1) Pulmonary emboli Medical Problems: (1) Body mass index (bmi) 60.0-69.9, adult (2) Essential (Primary) Hypertension (3) Gout, Unspecified (4) Morbid (Severe) Obesity Due To Excess Calories (5) Pulmonary emboli (6) Vitamin D Deficiency, Unspecified Family History Patient reports no known family medical history. Social History Smoking Status: Never Smoker Drug Use: none Marital Status: Housing Status: lives with family Occupation Status: employed Current/Historical Medications Scheduled Carvedilol (Carvedilol), 1 TAB PO BID Escitalopram Oxalate (Lexapro), 5 MG PO DAILY Lisinopril (Lisinopril), 5 MG PO QAM Pramipexole Dihydrochloride (Pramipexole Dihydrochlori), 0.25 MG PO HS Topiramate (Topiramate), 25 MG PO AMPM Scheduled PRN Colchicine (Colchicine), 0.6 MG PO UD PRN for gout Physical Exam Vital Signs Date Time Temp Pulse Resp B/P (MAP) Pulse Ox O2 Delivery O2 Flow Rate FiO2 10/20/17 12:28 78 20 98 10/20/17 11:35 72 18 140/78 99 Room Air 10/20/17 10:20 97 Room Air 10/20/17 10:20 97 Room Air 10/20/17 09:45 75 10/20/17 09:32 36.5 58 18 140/78 97 Room Air Physical Exam CONSTITUTIONAL: Morbidly obese male, alert and oriented X 3 with positive affect. She does not appear in any acute distress. HEENT: Normocephalic, atraumatic. Pupils equal, round and reactive. No scleral icterus or conjunctival injection/pallor. NECK: Full active range of motion without discomfort. No JVD or drive bruits. RESPIRATORY: Clear to auscultation bilaterally with no wheezing, crackles, rhonchi or stridor. CARDIOVASCULAR: Regular rate and rhythm with no murmurs, rubs or gallops. GASTROINTESTINAL: Bowel sounds present in all quadrants. Soft and nontender to palpation. MUSCULOSKELETAL: Full range of motion of all joints without discomfort. Patient has no palpable tenderness to palpation of the costochondral joints or anterior ribs. Deep breathing does not worsen his discomfort. INTEGUMENTARY: No rash or other significant dermatologic conditions noted. HEMATOLOGIC: No ecchymosis or petechiae. NEUROLOGIC: No focal neurologic deficits noted. Medical Decision & Procedures ER Provider Diagnostic Interpretation: My interpretation of an ECG shows a sinus bradycardia of [address] elevation or other conduction abnormalities. CT angiography of the chest does not show any evidence for consolidations or pulmonary emboli. Radiologist report is as follows: CT ANGIOGRAPHY OF THE CHEST, PULMONARY EMBOLUS PROTOCOL CLINICAL HISTORY: Shortness of breath. Chest pain. History of pulmonary embolus. COMPARISON STUDY: Chest CT February 09, 2017 and chest radiograph February 12, 2017. TECHNIQUE: Following IV administration of 106 mL of Optiray-320, helical axial images of the chest were obtained utilizing the pulmonary embolus protocol. Maximal intensity projections and sagittal and coronal reformats were viewed on an independent 3D workstation. IV contrast was administered without complication. A dose lowering technique was utilized adhering to the principles of ALARA. CT DOSE: 887.89 mGy.cm FINDINGS: No pulmonary emboli are identified although the segmental and subsegmental vessels are suboptimally assessed on this exam due to suboptimal opacification, respiratory motion artifact and quantum mottle artifact. There is no evidence for thoracic aortic dissection. The heart is mildly enlarged. There is no pericardial effusion. No enlarged axillary, mediastinal or hilar lymph nodes are present. There is no pneumothorax or pleural effusion. No consolidation to suggest pneumonia is noted. A splenule is noted. Bony thorax is unremarkable. IMPRESSION: 1. No pulmonary emboli identified although segmental and subsegmental pulmonary arteries suboptimally assessed on this exam due to artifact. 2. Mild cardiomegaly. 3. No acute intrathoracic findings. Laboratory Results 10/20/17 10:15 Red Blood Count 4.81, Mean Corpuscular Volume 88.6, Mean Corpuscular Hemoglobin 29.9, Mean Corpuscular Hemoglobin Concent 33.8, Mean Platelet Volume 10.2, Neutrophils (%) (Auto) 60.2, Lymphocytes (%) (Auto) 30.8, Monocytes (%) (Auto) 5.1, Eosinophils (%) (Auto) 3.0, Basophils (%) (Auto) 0.4, Neutrophils # (Auto) 4.84, Lymphocytes # (Auto) 2.48, Monocytes # (Auto) 0.41, Eosinophils # (Auto) 0.24, Basophils # (Auto) 0.03 10/20/17 10:15 Test 10/20/17 10:15 White Blood Count 8.04 K/uL (4.8-10.8) Red Blood Count 4.81 M/uL (4.7-6.1) Hemoglobin 14.4 g/dL (14.0-18.0) Hematocrit 42.6 % (42-52) Mean Corpuscular Volume 88.6 fL (80-100) Mean Corpuscular Hemoglobin 29.9 pg (25-34) Mean Corpuscular Hemoglobin Concent 33.8 g/dl (32-36) Platelet Count 257 K/uL (130-400) Mean Platelet Volume 10.2 fL (7.4-10.4) Neutrophils (%) (Auto) 60.2 % Lymphocytes (%) (Auto) 30.8 % Monocytes (%) (Auto) 5.1 % Eosinophils (%) (Auto) 3.0 % Basophils (%) (Auto) 0.4 % Neutrophils # (Auto) 4.84 K/uL (1.4-6.5) Lymphocytes # (Auto) 2.48 K/uL (1.2-3.4) Monocytes # (Auto) 0.41 K/uL (0.11-0.59) Eosinophils # (Auto) 0.24 K/uL (0-0.5) Basophils # (Auto) 0.03 K/uL (0-0.2) RDW Standard Deviation 45.5 fL (36.4-46.3) RDW Coefficient of Variation 14.0 % (11.5-14.5) Immature Granulocyte % (Auto) 0.5 % Immature Granulocyte # (Auto) 0.04 K/uL (0.00-0.02) Prothrombin Time 10.0 SECONDS (9.0-12.0) Prothromb Time International Ratio 1.0 (0.9-1.1) Activated Partial Thromboplast Time 26.9 SECONDS (21.0-31.0) Partial Thromboplastin Ratio 1.0 Anion Gap 7.0 mmol/L (3-11) Est Creatinine Clear Calc Drug Dose 202.4 ml/min Estimated GFR () 130.4 Estimated GFR (Non- 112.5 BUN/Creatinine Ratio 11.6 (10-20) Calcium Level 8.9 mg/dl (8.5-10.1) Total Bilirubin 0.4 mg/dl (0.2-1) Direct Bilirubin < 0.1 mg/dl (0-0.2) Aspartate Amino Transf (AST/SGOT) 10 U/L (15-37) Alanine Aminotransferase (ALT/SGPT) 26 U/L (12-78) Alkaline Phosphatase 72 U/L (45-117) Total Creatine Kinase 84 U/L (39-308) Creatine Kinase MB 0.8 ng/ml (0.5-3.6) Creatine Kinase MB Ratio 1.0 (0-3.0) Troponin I < 0.015 ng/ml (0-0.045) Pro-B-Type Natriuretic Peptide 11 pg/ml (0-450) Total Protein 7.5 gm/dl (6.4-8.2) Albumin 3.2 gm/dl (3.4-5.0) Lipase 110 U/L (73-393) ED Course Patient history and physical exam were performed. Nurse's notes were reviewed. Vital signs were reviewed and were normal. The patient does not appear in any acute respiratory distress or other discomfort. 18-gauge IV access was established, and labs were drawn. An ECG was performed and was relatively normal. Chest CT angiography was negative for pulmonary embolus. Mild cardiomegaly is noted. Labs were reviewed showing negative BNP and troponin. Remaining labs were also normal. The case was further discussed with Dr. Maddox, ED attending physician, who agrees with workup and outpatient plan of care. The patient was advised of his normal findings. I did suggest that he contact his PCP for further follow-up as he may warrant referral to cardiology for a stress test. The patient was instructed to return to the emergency department for any progressively worsening pain, shortness of breath, diaphoresis, fever or other concerning symptoms. The patient was happy with plan of care, voice understanding of all discharge instructions, and denied any significant discomfort at the time of discharge. Medical Decision Patient presents to the emergency department with complaint of lower central chest pain and shortness of breath. The patient does have a prior history of pulmonary emboli, therefore I felt that repeat CT angiography was warranted. That study today was normal. Additional labs are not suggestive of myocardial infarction or congestive heart failure. The patient does not have clinical exam findings consistent with heart failure. Because the patient has had some recent upper respiratory infections, pleuritic chest pain yesterday a possibility; however, the patient denies any worsening pain with deep breathing. I do not suspect pericarditis or myocarditis. I do feel that the patient is safe for outpatient follow-up, with specific instructions to return to the emergency department for any worsening symptoms. [place] Drug Monitoring Program Search Results: patient reviewed within database Medication Reconcilliation Current Medication List: was personally reviewed by me Blood Pressure Screening Patient's blood pressure: Normal blood pressure Impression Primary Impression: Anterior chest wall pain Additional Impression: Shortness of breath Departure Information Referrals Karlee Tan, C.R.N.P. (PCP) Patient Instructions My [facility] Problem Qualifiers
== END 2017-10-20 12:31 | disposition home or self-care (01) ==
LOC: C.EDB 09:23 → C.EDA 12:31
DX: R07.89 Other chest pain (principal); R06.02 Shortness of breath; E66.9 Obesity, unspecified

== ENCOUNTER → 2017-11-29 | Outpatient (CLI) | payer BC ==
[~2017-11-29] MED LIST changes: -CMD5 PO; -ERGO500011 PO; +PRAM0.259 PO; +TOPI25CA2 PO
== END | disposition home or self-care (01) ==
LOC: C.LABPVFM 08:30
PROVIDERS: ATTEND Nurse Practitioner
DX: E03.9 Hypothyroidism, unspecified (principal)

== ENCOUNTER → 2017-12-27 | Outpatient (CLI) | payer BC ==
--- NOTE | 2017-12-27 18:02 | DIAGNOSTIC IMAGING REPORT ---
R LOWER EXT JOINT WITHOUT CLINICAL HISTORY: RIGHT KNEE PAIN R/O TEAR TECHNIQUE: Multiaxial MRI acquisition COMPARISON STUDY: None FINDINGS: Signal characteristics the osseous structures are unremarkable. Resolution is somewhat compromised due to patient body habitus and the necessity of using a secondary coil. Anterior and posterior cruciate ligament are intact. The lateral meniscus is unremarkable in signal characteristic and configuration. Medial meniscus demonstrates slight apical truncation of the mid meniscal apex. There is a focal hairline tear extending to the inferior meniscal surface at the mid medial meniscus apex with intrameniscal extension toward the posterior horn. The patellofemoral joint is remarkable for a small focus of chondromalacia patella at the mid aspect of the patella. Loss of articular surface is minimal extends over a distance of approximately 5 mm. The patellar retinaculum is intact. The collateral ligaments structures are unremarkable as well. IMPRESSION: 1. Focal tear mid medial meniscus. 2. 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 3. All remaining ligamentous and tendinous structures are intact. The above report was generated using voice recognition software. It may contain grammatical, syntax or spelling errors. Electronically signed by: Kip Valencia M.D. 12/27/2017 6:01 PM Dictated Date/Time: 12/27/2017 5:56 PM
== END | disposition home or self-care (01) ==
LOC: C.MRIBC 16:37
PROVIDERS: ATTEND Orthopaedic Surgery
DX: M25.561 Pain in right knee (principal)

== ENCOUNTER → 2017-12-30 | Outpatient (CLI) | payer BC | END | disposition home or self-care (01) | LOC: C.LABPVFM 15:50 | PROVIDERS: ATTEND Nurse Practitioner | DX: E03.9 Hypothyroidism, unspecified (principal) ==

== ENCOUNTER 2018-01-27 08:21 | Day surgery (SDC) | payer BC ==
[2018-01-20 14:37] VITALS: BMI 61.0
--- NOTE | 2018-01-20 15:10 | PAT Medication Instructions ---
Service Date January 20, 2018. Current Home Medication List Carvedilol (Carvedilol), 1 TAB PO BID Colchicine (Colchicine), 0.6 MG PO UD PRN for gout Ergocalciferol (Vitamin D 26542 Unit), 50,000 UNIT PO WK Escitalopram Oxalate (Lexapro), 5 MG PO QPM Hydrocodone/Acetaminophen 5MG/325MG ([place] 5MG/325MG), 1 TABLET PO Q4-6H PRN for Pain Levothyroxine Sodium (Levothyroxine Sodium), 1 TAB PO QAM Lisinopril (Zestril), 5 MG PO QAM Ondansetron Hcl (Zofran), 4 MG PO Q8H PRN for N Pramipexole Dihydrochloride (Pramipexole Dihydrochlori), 0.25 MG PO HS Ranitidine (Zantac), 150 MG PO BID Topiramate (Topiramate), 25 MG PO AMPM Medication Instructions For Your Scheduled Surgery - Continue as directed: Colchicine (Colchicine), 0.6 MG PO UD PRN for gout Ergocalciferol (Vitamin D 38035 Unit), 50,000 UNIT PO WK - Hold the following medications the morning of surgery: Lisinopril (Zestril), 5 MG PO QAM - Take the following medications the morning of surgery with a sip of water OTHERWISE NOTHING TO EAT OR DRINK AFTER MIDNIGHT: Hydrocodone/Acetaminophen 5MG/325MG ([place] 5MG/325MG), 1 TABLET PO Q4-6H PRN for Pain Ranitidine (Zantac), 150 MG PO BID Topiramate (Topiramate), 25 MG PO AMPM Ondansetron Hcl (Zofran), 4 MG PO Q8H PRN Carvedilol (Carvedilol), 1 TAB PO BID Levothyroxine Sodium (Levothyroxine Sodium), 1 TAB PO QAM - Take the following medications as scheduled the night before surgery: Hydrocodone/Acetaminophen 5MG/325MG ([place] 5MG/325MG), 1 TABLET PO Q4-6H PRN for Pain Ranitidine (Zantac), 150 MG PO BID Topiramate (Topiramate), 25 MG PO AMPM Pramipexole Dihydrochloride (Pramipexole Dihydrochlori), 0.25 MG PO HS Escitalopram Oxalate (Lexapro), 5 MG PO QPM Ondansetron Hcl (Zofran), 4 MG PO Q8H PRN Carvedilol (Carvedilol), 1 TAB PO BID If you have any questions please call us at [phone] or [phone] or [phone]
[2018-01-20 15:48] LABS: BASO % 0.4 %; BASO ABS # 0.05 K/uL (0-0.2); EOS % 2.2 %; EOS ABS # 0.28 K/uL (0-0.5); HEMATOCRIT 42.4 % (42-52); HEMOGLOBIN 14.7 g/dL (14.0-18.0); IG# 0.05 K/uL (0.00-0.02); LYMPH % 26.3 %; LYMPH ABS # 3.43 K/uL (1.2-3.4); MEAN CORPUSCULAR HEMOGLOBIN 30.5 pg (25-34); MEAN CORPUSCULAR HGB CONC 34.7 g/dl (32-36); MEAN PLATELET VOLUME 10.4 fL (7.4-10.4); MONO % 6.4 %; MONO ABS # 0.83 K/uL (0.11-0.59); NEUT % 64.3 %; NEUT ABS # 8.38 K/uL (1.4-6.5); PLATELET COUNT 282 K/uL (130-400); RED CELL DISTRIBUTION WIDTH CV 13.7 % (11.5-14.5); RED CELL DISTRIBUTION WIDTH SD 44.2 fL (36.4-46.3); WHITE BLOOD COUNT 13.02 K/uL (4.8-10.8)
--- NOTE | 2018-01-20 15:54 | DIAGNOSTIC IMAGING REPORT ---
CHEST 2 VIEWS ROUTINE CLINICAL HISTORY: 42 years-old Male presenting with preoperative assessment. TECHNIQUE: PA and lateral views of the chest were obtained. COMPARISON: 02/22/2017. FINDINGS: Cardiac silhouette top normal in size. Lungs and pleural spaces clear. Degenerative changes of the thoracic spine. Upper abdomen normal. IMPRESSION: 1. No acute cardiopulmonary disease. Electronically signed by: Shay Bone M.D. 01/20/2018 3:52 PM Dictated Date/Time: 01/20/2018 3:51 PM
[2018-01-20 16:03] LABS: CREATININE 0.85 mg/dl (0.60-1.40)
[2018-01-20 16:04] LABS: POTASSIUM 4.2 mmol/L (3.5-5.1)
--- NOTE | 2018-01-21 12:05 | HISTORY & PHYSICAL EXAMINATION ---
DATE OF ADMISSION: 01/27/2018 CHIEF COMPLAINT: Persistent right medial knee pain and discomfort and catching. HISTORY OF PRESENT ILLNESS: A 42-year-old obese gentleman from [place], who was referred by my partner Dr. Austin for surgical treatment of his right knee. He has about a year history of right knee pain and discomfort that has gradually gotten worse over the past 6 months. He describes the pain over the medial side of his knee. He has had some intermittent mechanical symptoms of catching and locking as well. No one traumatic episode. He has been treated by Dr. Austin with an injection which helped him for about a week and that is about it. He had an MRI which revealed medial meniscus tear. He has now elected to proceed with surgical treatment. Pain is all medial. PAST MEDICAL HISTORY: Significant for: 1. Morbid obesity with a BMI of 60. 2. Asthma. 3. Question of a history of a blood clot in the past, but not on any anticoagulation. 4. Sleep apnea with CPAP machine. 5. Anxiety/depression. 6. Hypothyroidism. 7. Gastroesophageal reflux disease. PAST SURGICAL HISTORY: None. ALLERGIES: None. CURRENT MEDICINES: Included: 1. Escitalopram. 2. Colchicine. 3. Lisinopril. 4. Carvedilol. 5. Percocet. 6. Promethazine. SOCIAL HISTORY: A 42-year-old male patient from [place]. He is in between jobs right now. 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 FAMILY HISTORY: Noncontributory. REVIEW OF SYSTEMS: Significant for morbid obesity. Denies any current chest pain or shortness of breath. There is question of a DVT in the past, but he is not on anticoagulation. There is no coagulation disorder. PHYSICAL EXAMINATION: GENERAL: Reveals an obese, middle-aged male. HEENT: Benign. NECK: Supple. No lymphadenopathy. LUNGS: Clear to auscultation. HEART: Regular rate and rhythm. ABDOMEN: Soft, nontender, nondistended. EXTREMITIES: Grossly neurovascularly intact except as follows: Examination of the right knee reveals the patient walks with a little bit of a waddling gait. He has got a small knee effusion. He is tender over the medial joint line. Range of motion 0-125. He does have pain with terminal flexion as well as Marbella's testing. He has got no pain with hip motion. There is no clinical instability. X-RAYS: X-ray of the right knee reviewed. It shows a skeletally mature patient. Joint space is pretty well maintained. Little tilt to his patella. Some minor arthritic changes. MRI: MRI from 12/27/2017 was reviewed. It shows a significant tear, medial meniscus tear. He has got some chondral disease in the medial femoral condyle and patellofemoral joint. No significant bone marrow edema. ASSESSMENT: A 42-year-old obese male with a 1-year history of right knee pain and discomfort consistent with some mild DJD and medial meniscus tear. He has failed conservative treatment and would like to have his right knee fixed surgically. PLAN: We will proceed with a right knee arthroscopy, partial meniscectomy and chondroplasty. The risks and benefits of this procedure were explained to the patient include but not limited to DVT, PE, , infection, neurological injury, vascular injury, bleeding problem, pain, limited range of motion, stiffness, failure to relieve symptoms, incomplete relief of symptoms, need for further surgery in future, persistent pain, etc. The patient understands and desires to proceed. Informed consent was obtained. We are going to do this at the hospital due to his large size and BMI. We will put him on aspirin for DVT prophylaxis postoperatively as well as TEDs and SCDs due to his questionable risk of thrombosis. He should be able to be discharged to home. We will start therapy postop day 1.
[~2018-01-27] VITALS: Ht 172.7 cm; Wt 182.3 kg
[~2018-01-27 08:21] MED LIST changes: +ERGO500037 PO; +GELATIN SPONGE SZ 100 ONE; +HYDR-5688 PO; +LACTATED RINGER'S 1000ML IV SCH; +LEVO50TA6 PO; +LIDOCAINE HCL 1% 20 ML VIAL ONE; +LISI-729 PO; -LSN5 PO; +ONDA4TAB46 PO; +RANI150T85 PO
[2018-01-27 08:50] VITALS: BP 112/50; PULSE 48; TEMP 36.6; O2SAT 98; Ht 172.7 cm; Wt 182.3 kg
[2018-01-27] MEDS ORDERED: CEFAZOLIN 3000MG IV PUSH 22.5 ML IV STA (09:00)
--- NOTE | 2018-01-27 09:04 | History & Physical Bridge Note ---
H&P Re-Evaluation Bridge Note: I have examined the patient, reviewed the History & Physical and in the interval since the performance of the History & Physical I have noted the following changes of clinical significance: No changes noted
[2018-01-27] MEDS ORDERED: EpHEDrine SULFATE INJ 50 MG/ML AMP IV PRN (09:45)
[2018-01-27] MEDS ORDERED: ATROPINE SULFATE 0.1 MG/ML 5ML SYR IV PRN (09:45)
[2018-01-27] MEDS ORDERED: KETAMINE HCL INJ 50 MG/ML 10 ML VIAL ONE (10:14)
[2018-01-27] MEDS ORDERED: SODIUM CHLORIDE 0.9% INJ 10 ML VIAL ONE ×2 (10:15→12:28)
[2018-01-27] MEDS ORDERED: MIDAZOLAM HCL 1 MG/ML 2ML VIAL ONE (10:17)
[2018-01-27] MEDS ORDERED: FENTANYL CITRATE INJ 50 MCG/1 ML 2 ML VIAL ONE (10:17)
[2018-01-27] MEDS ORDERED: LIDOCAINE 4% INH SOLN 4 ML BTL NEB STA (10:43)
[2018-01-27] MEDS ORDERED: EpINEphrine INJ 1MG/ML AMP 1 MG/ML AMP ONE (10:54)
[2018-01-27] MEDS ORDERED: KETOROLAC TROMETHAMINE 30 MG/ML VIAL ONE ×2 (10:54→12:30)
[2018-01-27 11:09] VITALS: PULSE 56; O2SAT 98
[2018-01-27] MEDS ORDERED: PROPOFOL IV EMULSION 10 MG/ML 20 ML VIAL ONE ×2 (11:47→12:29)
[2018-01-27] MEDS ORDERED: ONDANSETRON INJ 2 MG/ML 2 ML VIAL ONE (11:47)
[2018-01-27] MEDS ORDERED: DEXAMETHASONE SOD INJ 4 MG/ML VIAL ONE (11:47)
[2018-01-27] MEDS ORDERED: SUCCINYLCHOLINE CHLORIDE 20 MG/ML 10 ML VIAL IV ONE (11:51)
[2018-01-27] MEDS ORDERED: GLYCOPYRROLATE INJ 0.2 MG/ML VIAL ONE ×2 (11:52→12:09)
[2018-01-27] MEDS ORDERED: ROPIVACAINE 0.5% 5 MG/ML 30 ML VIAL INFIL ONE (12:09)
[2018-01-27] MEDS ORDERED: SODIUM CHLORIDE 0.9% 1000ML 1,000 ML IV SCH (12:09)
[2018-01-27] MEDS ORDERED: NEOSTIGMINE METHYLSULFATE 5 MG/5 ML SYR ONE (12:09)
--- NOTE | 2018-01-27 12:10 | [facility] Post Operative Brief Note ---
Immediate Operative Summary Operative Date January 27, 2018. Pre-Operative Diagnosis Right knee medial meniscus tear + DJD Post-Operative Diagnosis Right knee medial meniscus tear + DJD Procedure(s) Performed Right knee arthroscopy partial medial menisectomy Surgeon Dr. Tripp Meat Passer Surgeon(s) Prashanth David PA-C Estimated Blood Loss 5cc Findings Consistent with Post-Op Diagnosis Specimens None Drains None Anesthesia Type General Complication(s) none Disposition Accompanied Pt To Recover: no Disposition: Recovery Room / PACU Overlapping Procedure I was present for: the critical portions of procedure. I was immediately available: during the entire case
[2018-01-27] MEDS ORDERED: KETO10TA PO (12:12)
[2018-01-27] MEDS ORDERED: ASPI81TA28 PO (12:12)
[2018-01-27] MEDS ORDERED: ROCURONIUM BROMIDE 10 MG/ML 5 ML VIAL ONE (12:12)
[2018-01-27] MEDS ORDERED: OXYC-57 PO (12:12)
--- NOTE | 2018-01-27 12:14 | Discharge Instructions ---
Discharge Instructions Date of Service January 27, 2018. Admission Reason for Admission: Right Knee Medial Meniscal Tear Discharge Discharge Diagnosis / Problem: right knee medial meniscus tear Discharge Goals Goal(s): Decrease discomfort, Therapeutic intervention Activity Recommendations Activity Limitations: per Instructions/Follow-up section Weightbearing Status: Right weightbearing (as tolerated) . Instructions / Follow-Up Instructions / Follow-Up MEDICATIONS: * Resume previous medications unless instructed otherwise by your surgeon. * Always take pain medication on a full stomach or with food to avoid upset stomach. * Do not drink alcohol or drive while taking narcotics. * Ibuprofen or Tylenol may be taken if narcotic not needed. No ibuprofen while taking toradol SPECIAL CARE INSTRUCTIONS: __ None _x_ Keep extremity elevated and iced x 48 hours; apply ice 20-30 minutes 8-10 times/day. May remove at night. __ Crutches __ May discard when able __ Brace/Post-op shoe __ 24 hrs/day __ Remove at night _x_ Dressing __ Maintain until seen in office, may shower with plastic over site x__ Remove dressings in 24-48 hours and then may shower x__ Cover incisions with band-aids after showering __ Do not remove steri-strips Call physician if chills or temperature rises above 102 degrees or pain unrelieved by prescribed pain medications. Office [phone] follow up in 2 weeks Current Hospital Diet Patient's current hospital diet: Discharge Diet Recommended Diet: Regular Diet Procedures Procedures Performed: Right knee arthroscopy partial medial menisectomy Pending Studies Studies pending at discharge: no Medical Emergencies . Who to Call and When: Medical Emergencies: If at any time you feel your situation is an emergency, please call 911 immediately. . Non-Emergent Contact Non-Emergency issues call your: Surgeon . "Provider Documentation" section prepared by Prashanth David. .
[2018-01-27] MEDS ORDERED: OXYCODONE/ACETAMINOPHEN 5-325 TAB PO PRN ×2 (12:15)
[2018-01-27] MEDS ORDERED: EpHEDrine SULFATE INJ 50 MG/ML AMP ONE (12:28)
[2018-01-27] MEDS ORDERED: ACETAMINOPHEN 1000 MG/100 ML IV IV ONE (12:30)
[2018-01-27] MEDS ORDERED: NURSING VERBAL MED ORDER ONE (12:35)
[2018-01-27 13:00] VITALS: BP 140/56; PULSE 53; TEMP 36.4; O2SAT 94
[2018-01-27 13:30] VITALS: BP 132/64; PULSE 54; O2SAT 95
--- NOTE | 2018-01-27 13:50 | Anesthesiology Progress Note ---
Anesthesia Progress Note Date of Service January 27, 2018. Progress Notes Mr. Richardson is a 43 yo male who was scheduled today for a knee arthroscopy under [place]. Due to concerns about a potentially difficult airway the patient was pretreated with a 4% lidocaine inhaled nebulizer. In the operating room, he was ramped to optimize positioning and preoxygenated well. He was given glycopyrrolate, midazolam and ketamine to optimize patient comfort and preserve respirations. He was able to open his mouth on command and he had a grade 1 view by GlideScope. After confirmation of airway by GlideScope, the patient was induced with propofol and succinylcholine. He was an easy 2 hand mask. He was a grade 3 view with a MAC 4 blade and was intubated with an 8.0 ETT on the first try. Please see the anesthesia record for more detailed information on drug dosages. Fay Morton MD, PhD Anesthesiology
[2018-01-27 14:00] VITALS: BP 133/62; PULSE 54; TEMP 36.6; O2SAT 96
--- NOTE | 2018-01-27 14:01 | OPERATIVE REPORT ---
DATE OF OPERATION: 01/27/2018 PREOPERATIVE DIAGNOSES: 1. Right degenerative medial meniscus tear. 2. Right knee degenerative joint disease. POSTOPERATIVE DIAGNOSES: Same. PROCEDURES PERFORMED: 1. Right knee exam under anesthesia. 2. Right knee diagnostic arthroscopy. 3. Right knee arthroscopic partial medial meniscectomy. COMPLICATIONS: None. ESTIMATED BLOOD LOSS: Minimal. TOURNIQUET TIME: 22 minutes at 350 mmHg. ANESTHESIA: General. SPECIMENS: None. OPERATIVE INDICATIONS: The patient is a 42-year-old morbidly obese gentleman who has had about a year history of knee pain and discomfort that has gotten worse over the past 6 months. He had been treated by Dr. Austin with injection, which gave temporary relief only. X-rays revealed fairly mild DJD. He had an MRI which showed medial meniscus tear. He failed conservative treatment and elected to proceed with operative treatment. OPERATIVE FINDINGS: Examination under anesthesia of the right knee revealed a large soft tissue envelope. He had a small knee effusion. Range of motion is full extension and slight hyperextension to 135 degrees, flexion limited by soft tissues. No instability. Marbella's is negative for mechanical symptoms. ARTHROSCOPIC FINDINGS: Arthroscopic findings revealed small knee effusion. He did have some grade 2 changes of the patella and trochlea fairly focal. In the intercondylar notch, the ACL and PCL were intact. In the medial compartment, there was a complex degenerative tear of the posterior horn of the medial meniscus. He had some grade 2 changes of the medial femoral condyle. In the lateral compartment, the articular surface and meniscus revealed some age-related changes only. OPERATIVE PROCEDURE: The patient was taken to the operating room, identified and placed on the operating table in supine position. All contact areas were appropriately padded. IV antibiotics provided by anesthesia team. General anesthetic was implemented by anesthesia team. Right thigh tourniquet was then placed. The right knee was then examined under anesthesia with findings as described above. The right leg was then prepped and draped in the usual sterile fashion. The right leg was elevated and exsanguinated with Esmarch. Tourniquet was placed at 350 mmHg. Routine right knee arthroscopy was then performed through typical anteromedial and anterolateral portals. A superolateral flow portal was established for outflow. I did have to resect some of the synovium in the intercondylar notch area in order to pass the instruments. A partial medial meniscectomy was then performed with use of motorized and hand controlled instruments. We resected this and debrided this back to stable tissue. Once this was completed, the arthroscopic instruments were placed throughout the knee joint. All extraneous debris removed. I did debride just slightly some cartilage at the end of the medial femoral condyle as well as the patellofemoral joint. The arthroscopic instruments were then removed from the joint. The portals were closed with 3-0 Prolene suture in a simple fashion. The knee was injected with 30 mL of 0.5% ropivacaine with epinephrine and 30 mg of Toradol. A sterile dressing of Xeroform, 4x4s, sterile cast padding, and Jose bandage was applied. The tourniquet was then let down for a tourniquet time of 22 minutes. The patient was then brought out of general anesthesia and transferred to the recovery room in stable condition. The patient tolerated the procedure well with no complications. All needle and sponge counts were correct at the end of the operation. I attest to the content of the Intraoperative Record and any orders documented therein. Any exception s are noted below.
--- NOTE | 2018-01-27 14:11 | Anesthesiology Progress Note ---
Anesthesia Post Op Note Date & Time January 27, 2018 at 14:11 Vital Signs Pain Intensity: 3 Vital Signs Past 12 Hours Date Time Temp Pulse Resp B/P (MAP) Pulse Ox O2 Delivery O2 Flow Rate FiO2 01/27/18 13:30 54 20 132/64 95 Room Air 01/27/18 13:00 36.4 53 20 140/56 94 Room Air 01/27/18 12:50 36.2 48 16 135/69 96 Room Air 01/27/18 12:40 49 16 119/89 100 Room Air 01/27/18 12:30 65 16 138/76 100 Oxymask 10 01/27/18 12:20 71 16 125/86 98 Oxymask 10 01/27/18 12:13 36.4 74 16 142/78 97 Oxymask 10 01/27/18 11:09 56 18 98 Room Air 01/27/18 08:50 36.6 48 22 112/50 (70) 98 Room Air Notes Mental Status: alert / awake / arousable, participated in evaluation Pt Amnestic to Procedure: Yes Nausea / Vomiting: adequately controlled Pain: adequately controlled Airway Patency, RR, SpO2: stable & adequate BP & HR: stable & adequate Hydration State: stable & adequate Anesthetic Complications: no major complications apparent
== END 2018-01-27 14:05 | disposition home or self-care (01) ==
LOC: C.ACU 08:21
PROVIDERS: ATTEND Orthopaedic Surgery Sports Medicine
DX: S83.241A Other tear of medial meniscus, current injury, right knee, initial encounter (principal); M17.11 Unilateral primary osteoarthritis, right knee; J45.909 Unspecified asthma, uncomplicated; E66.01 Morbid (severe) obesity due to excess calories; G47.33 Obstructive sleep apnea (adult) (pediatric); M19.90 Unspecified osteoarthritis, unspecified site; F41.9 Anxiety disorder, unspecified; F32.9 Major depressive disorder, single episode, unspecified; E03.9 Hypothyroidism, unspecified; K21.9 Gastro-esophageal reflux disease without esophagitis; Z68.44 Body mass index [BMI] 60.0-69.9, adult; X58.XXXA Exposure to other specified factors, initial encounter; Z86.711 Personal history of pulmonary embolism; G25.81 Restless legs syndrome

== ENCOUNTER 2018-04-04 12:55 | Emergency (ER) | payer BC ==
[~2018-04-04] VITALS: Ht 172.7 cm; Wt 182.0 kg
[~2018-04-04 12:55] MED LIST changes: +CARV3.122 PO; +CEPH500C PO; -CRG3125 PO; +ESCI10TA17 PO; -ESCI1TAB6 PO; -GELATIN SPONGE SZ 100 ONE; -HYDR-5688 PO; -LACTATED RINGER'S 1000ML IV SCH; -LIDOCAINE HCL 1% 20 ML VIAL ONE; +SULF800T23 PO; +VALA1TAB31 PO
[2018-04-04 12:57] VITALS: BP 123/68; PULSE 61; TEMP 36.5; O2SAT 97; Ht 172.7 cm; Wt 182.0 kg
--- NOTE | 2018-04-04 16:29 | EMERGENCY ROOM VISIT NOTE ---
History First contact with patient: 13:01 Chief Complaint: FINGER PAIN Stated Complaint: INFECTION IN MIDDLE LEFT FINGER History of Present Illness The patient is a 43 year old male who presents to the Emergency Room with complaints of a recurrent infection of the left middle finger. The patient reports that he was seen here a week ago with a similar infection. He was treated with Keflex and Bactrim for paronychia. He reports that the redness and swelling did improve, but is now coming back again. He called his family doctor's office and was referred back to the emergency department. He rates his pain a 4 out of 10. He has not noticed any red streaks going up the finger. He denies any paresthesias or numbness of the finger or fingertip. Tetanus immunization is up-to-date. Review of Systems 10 system review was performed and was negative except for pertinent positives and negatives as indicated in history of present illness Past Medical/Surgical History Medical Problems: (1) Body mass index (bmi) 60.0-69.9, adult (2) Essential (Primary) Hypertension (3) Gout, Unspecified (4) Morbid (Severe) Obesity Due To Excess Calories (5) Pulmonary emboli (6) Vitamin D Deficiency, Unspecified Family History Patient reports no known family medical history. Social History Smoking Status: Never Smoker Drug Use: none Marital Status: Housing Status: lives with family Occupation Status: employed Current/Historical Medications Scheduled Carvedilol (Coreg), 3.125 MG PO BID Cephalexin Monohydrate (Keflex), 500 MG PO QID Ergocalciferol (Vitamin D 87831 Unit), 50,000 UNIT PO WK Escitalopram (Lexapro), 10 MG PO DAILY Levothyroxine Sodium (Levothyroxine Sodium), 50 MCG PO DAILY Lisinopril (Zestril), 5 MG PO QAM Pramipexole Dihydrochloride (Pramipexole Dihydrochlori), 0.25 MG PO HS Ranitidine (Zantac), 150 MG PO BID Sulfa/Trimethoprim (Bactrim Ds 800MG/160MG), 1 TAB PO BID Topiramate (Topiramate), 25 MG PO AMPM Valacyclovir Hcl (Valtrex), 1 GM PO TID Scheduled PRN Colchicine (Colchicine), 0.6 MG PO UD PRN for gout Ondansetron Hcl (Zofran), 4 MG PO Q8H PRN for N Physical Exam Vital Signs Date Time Temp Pulse Resp B/P (MAP) Pulse Ox O2 Delivery O2 Flow Rate FiO2 04/04/18 12:57 36.5 61 18 123/68 97 Room Air Physical Exam CONSTITUTIONAL: Healthy and well nourished. Alert and oriented X 3 with positive affect. HEENT: Normocephalic, atraumatic. Pupils equal, round and reactive. NECK: Full active range of motion without discomfort. MUSCULOSKELETAL: Examination of the left third finger shows erythema and edema over the ulnar nail fold. There is no fluctuance. There is overriding erythema of this area. Nail plate is intact. Patient has no tenderness to palpation of the DIP or PIP joint. No proximal lymphangitic streaking. Capillary refill is less than 2 seconds. INTEGUMENTARY: No rash or other significant dermatologic conditions noted. NEUROLOGIC: Left third fingertip is sensory intact. Medical Decision & Procedures ED Course Patient history and physical exam were performed. Nurse's notes were reviewed. Vital signs were reviewed and were normal. Because the patient is now getting a recurrent infection, I did suggest that he follow-up with Dr. Hernandez for reevaluation. The patient reports that he is still on his antibiotics, and was encouraged to continue and finish the antibiotics. I did review cultures from 03/30/18, showing coag negative Staphylococcus that is rare in quantity. This should be covered well by his current antibiotics. He was instructed to return to the emergency department for any significantly worsening infection. He was encouraged alternate ibuprofen and Tylenol as needed for pain. The patient was happy with plan of care, voiced understanding of all discharge instructions, and rated his pain a 4 out of 10 at the conclusion of my exam. Medical Decision Medication Reconcilliation Current Medication List: was personally reviewed by me Blood Pressure Screening Patient's blood pressure: Normal blood pressure Impression Primary Impression: Paronychia of left middle finger Departure Information Dispostion Home / Self-Care Condition GOOD Referrals Luis Hernandez MD Forms HOME CARE DOCUMENTATION FORM, IMPORTANT VISIT INFORMATION Patient Instructions My [facility] Additional Instructions Continue and complete her antibiotics as previously prescribed. Ibuprofen or Tylenol as needed for pain. Suggest follow-up with Dr. Hernandez, [facility] hand surgeon, for further reevaluation and management - call his office for an appointment.
== END 2018-04-04 13:22 | disposition home or self-care (01) ==
LOC: C.EDB 12:56 → C.EDD 13:22
DX: L03.012 Cellulitis of left finger (principal); I10 Essential (primary) hypertension; E66.01 Morbid (severe) obesity due to excess calories; Z68.44 Body mass index [BMI] 60.0-69.9, adult; Z86.711 Personal history of pulmonary embolism; Z79.899 Other long term (current) drug therapy